=== PATIENT | male | born 1975 | race Caucasian/White ===

== ENCOUNTER 2020-03-07 08:42 | Emergency (ER) | payer SELFPAY ==
[~2020-03-07] VITALS: Ht 165.1 cm; Wt 65.8 kg
[2020-03-07] MEDS ORDERED: IBUPROFEN 600 MG TAB PO STA (08:48)
[2020-03-07] MEDS ORDERED: HYDROCODONE/APAP 5MG-325MG TAB PO ONE (09:00)
[2020-03-07] MEDS ORDERED: ULTRAM50 MG PO (09:50)
== END 2020-03-07 12:07 | disposition home or self-care (01) ==
LOC: ER 09:00
DX: S93.402A Sprain of unspecified ligament of left ankle, initial encounter (principal); W03.XXXA Other fall on same level due to collision with another person, initial encounter; Y92.008 Other place in unspecified non-institutional (private) residence as the place of occurrence of the external cause; F17.210 Nicotine dependence, cigarettes, uncomplicated
CPT/HCPCS: 99283